=== PATIENT | male | born 1980 | race Caucasian/White ===

== ENCOUNTER 2020-12-05 13:31 | Emergency (ER) | payer OTHER ==
[2020-12-05] MEDS ORDERED: Tetracaine HCl 0.5% Ophth Soln 2 ML Bottle ONE (13:47)
[2020-12-05] MEDS ORDERED: Fluorescein Opthalmic Strip ONE (13:47)
[2020-12-05] MEDS ORDERED: Erythromycin Base 0.5% Oint 1 GM TUBE ONE (14:06)
[2020-12-05] MEDS ORDERED: Ibuprofen 800 MG TAB ONE (14:07)
== END 2020-12-05 14:16 | disposition home or self-care (01) ==
LOC: NAV ERS 13:31
DX: S05.02XA Injury of conjunctiva and corneal abrasion without foreign body, left eye, initial encounter (principal); I10 Essential (primary) hypertension; F17.210 Nicotine dependence, cigarettes, uncomplicated; X58.XXXA Exposure to other specified factors, initial encounter
CPT/HCPCS: 99283